=== PATIENT | male | born 1970 | race Hispanic/Latino ===

== ENCOUNTER 2023-06-13 03:04 | Emergency (ER) | payer OTHER ==
[2023-06-13] MEDS ORDERED: diphenhydrAMINE 25 MG CAP ONE (03:32)
[2023-06-13] MEDS ORDERED: Dexamethasone 4 MG TAB ONE (03:35)
== END 2023-06-13 03:37 | disposition home or self-care (01) ==
LOC: CSHERS 03:04
DX: L50.9 Urticaria, unspecified (principal)
CPT/HCPCS: 99282; J8540